=== PATIENT | female | born 1955 | race Caucasian/White ===

== ENCOUNTER → 2018-12-11 | Outpatient (CLI) | payer BC ==
[~2018-12-11] MED LIST: GADOBUTROL 10 ML VIAL IVP ONE
== END ==
LOC: FIMAGING 10:44
PROVIDERS: ATTEND Internal Medicine Hematology & Oncology
DX: N60.89 Other benign mammary dysplasias of unspecified breast (principal)
CPT/HCPCS: A9585; C8908